=== PATIENT | male | born 1975 | race African-American/Black ===

== ENCOUNTER → 2019-05-22 | Emergency (ER) | payer OTHER ==
[~2019-05-22] VITALS: Ht 188 cm; Wt 104.3 kg
[~2019-05-22] MED LIST: AZITHROMYCIN 2250 MG PO; CHERATUSSIN AC118 ML PO; DELSYM COU30 MG/5 M1 PO; PREDNISONE 10 M10 MG PO; PREDNISONE 20 M20 MG PO; ROBITUSSIN100 MG/53 PO; SUDOGEST30 MG PO; TESSALON PERLE100 MG PO; VENTOLIN HFA 1818 GM INH
[2019-05-22 14:26] VITALS: BP 118/78
== END ==
LOC: ER 12:54
DX: J06.9 Acute upper respiratory infection, unspecified (principal); F17.200 Nicotine dependence, unspecified, uncomplicated; Z88.8 Allergy status to other drugs, medicaments and biological substances